=== PATIENT | female | born 1950 | race Caucasian/White ===

== ENCOUNTER → 2018-09-08 | Outpatient (CLI) | payer OTHER ==
[~2018-09-08] MED LIST: CLOP75TA PO; ESTR1TAB15 PO; FENO145T30 PO; LEVO100T PO; LOSA25TA6 PO
== END | disposition home or self-care (01) ==
LOC: CFH 07:13
PROVIDERS: ATTEND Internal Medicine Cardiovascular Disease
DX: R06.00 Dyspnea, unspecified (principal); I10 Essential (primary) hypertension; R06.02 Shortness of breath
CPT/HCPCS: 78452; 93017; A9502